=== PATIENT | female | born 1945 | race Caucasian/White ===

== ENCOUNTER → 2018-11-16 | Outpatient (CLI) | payer MEDICARE ==
[~2018-11-16] MED LIST: ASPI-515 PO; AZEL23SP NAS; HYDR25TA6 PO; LEVO75TA5 PO; LIOT25TA10 PO; OMNIPAQUE 350 MG/ML, 100ML BOTTLE ONE; PRAM0.375 PO; [UNRECOGNIZED DRUG - CODE] PO
[2018-11-16 16:10] LABS: CREATININE 1.51 mg/dL (0.55-1.02)
== END | disposition home or self-care (01) ==
LOC: RAD 15:26
PROVIDERS: ATTEND Family Medicine
DX: K56.690 Other partial intestinal obstruction (principal); M51.36 Other intervertebral disc degeneration, lumbar region
CPT/HCPCS: 36415; 74177; 82565; Q9967